=== PATIENT | female | born 1950 | race Two or more races ===

== ENCOUNTER 2020-03-27 14:30 | Emergency (ER) | payer OTHER ==
[~2020-03-27] VITALS: Ht 149.9 cm; Wt 57.6 kg
[2020-03-27] MEDS ORDERED: EVISTA60 MG (14:47)
[2020-03-27] MEDS ORDERED: TRICOR145 MG (14:47)
[2020-03-27] MEDS ORDERED: SYNTHROID88 MCG (14:47)
== END 2020-03-27 18:10 | disposition home or self-care (01) ==
LOC: ER 14:30
DX: I16.0 Hypertensive urgency (principal); I10 Essential (primary) hypertension; M54.2 Cervicalgia

== ENCOUNTER 2023-06-10 21:30 | Emergency (ER) | payer OTHER ==
[~2023-06-10] VITALS: Ht 149.9 cm; Wt 53.5 kg
[~2023-06-10 21:30] MED LIST: EVISTA60 MG; SYNTHROID88 MCG; TRICOR145 MG
[2023-06-10] MEDS ORDERED: LOTREL 10-20 M1 EACH PO (21:44)
[2023-06-10] MEDS ORDERED: TRICOR48 MG PO (21:45)
[2023-06-10] MEDS ORDERED: OxyCODONE HCL/APAP UD (PERCOCET) PO STA (23:13)
[2023-06-10] MEDS ORDERED: ACETAMINOPHEN 500 MG GEL..CAP PO STA (23:31)
[2023-06-11] MEDS ORDERED: PERCOCET 5-3251 EACH PO ×2 (03:06→03:07)
== END 2023-06-11 03:48 ==
LOC: ER 21:30
DX: S42.412A Displaced simple supracondylar fracture without intercondylar fracture of left humerus, initial encounter for closed fracture (principal); W18.39XA Other fall on same level, initial encounter; Y93.89 Activity, other specified; Y92.89 Other specified places as the place of occurrence of the external cause; Y99.9 Unspecified external cause status; Z88.6 Allergy status to analgesic agent; Z88.0 Allergy status to penicillin; Z88.8 Allergy status to other drugs, medicaments and biological substances